=== PATIENT | female | born 1945 | race Caucasian/White ===

== ENCOUNTER → 2019-04-06 | Outpatient (CLI) | payer MEDICARE, OTHER ==
[~2019-04-06] MED LIST: Acetaminophen-1 EAC1 PO; BACOPA PO; GLUCOSAMINE1000 MG PO; HORSE CHESTNUT PO; HYDACE5 PO; HYDCHL12.5 PO; LOSA25 PO; MELA3 PO; Norco 5-325 Ta1 EACH PO; PROM25 PO; RANI150 PO; THYR60 PO; ULTRA-LIGHT RO1 EACH MC; ZOLP5 PO
== END | disposition home or self-care (01) ==
LOC: PLD 07:59 → LAB SHORT 07:59
DX: L82.1 Other seborrheic keratosis (principal)
CPT/HCPCS: 88305

== ENCOUNTER → 2025-01-22 | Outpatient (CLI) | payer MEDICARE, OTHER ==
[~2025-01-22] MED LIST changes: +Aspir 8181 MG PO; +CENTRUM SILVER1 EAC2 PO; +Lisinopril-Hct1 EAC4 PO; +Percocet 5-3251 EACH PO; +THROID PO
== END | disposition home or self-care (01) ==
LOC: LAB 11:10 → LAB SHORT 11:10
DX: E03.9 Hypothyroidism, unspecified (principal)
CPT/HCPCS: 84443